=== PATIENT | male | born 1990 | race African-American/Black ===

== ENCOUNTER 2021-10-20 12:01 | Emergency (ER) | payer OTHER, MEDICAID ==
[~2021-10-20] VITALS: Ht 180.3 cm; Wt 65.3 kg
[2021-10-20 12:03] VITALS: BP 112/81
== END 2021-10-20 12:54 | disposition left against medical advice (07) ==
LOC: ER 12:01
DX: R11.2 Nausea with vomiting, unspecified (principal); R19.7 Diarrhea, unspecified; Z53.21 Procedure and treatment not carried out due to patient leaving prior to being seen by health care provider